=== PATIENT | female | born 1970 | race Caucasian/White ===

== ENCOUNTER → 2019-02-22 | Emergency (ER) | payer MEDICARE, MEDICAID ==
[~2019-02-22] VITALS: Ht 162.6 cm; Wt 80.9 kg
[~2019-02-22] MED LIST: ALPR-624 PO; ALPRAZolam 0.5mg tablet PO ONE; BENA10TA74 PO; CYCL-1 PO; ESTR0.6261 PO; HYDR200T84 PO; HYDROcodone/acetaminophen 10/325mg tab PO ONE; LOSA50TA3 PO; METO5TAB98 PO; NOR5T PO; OXYB5TAB80 PO; PANT-47 PO; PARO10TA76 PO; PARO40TA81 PO; TRAM50TA2 PO; [UNRECOGNIZED DRUG - OTHER] PO; ondansetron 4mg rapidly disintigrating tab PO ONE
[2019-02-22 23:35] VITALS: BP 142/92
== END | disposition home or self-care (01) ==
LOC: ER 22:26
DX: S82.831A Other fracture of upper and lower end of right fibula, initial encounter for closed fracture (principal); I10 Essential (primary) hypertension; Z88.2 Allergy status to sulfonamides; W01.0XXA Fall on same level from slipping, tripping and stumbling without subsequent striking against object, initial encounter; Y93.01 Activity, walking, marching and hiking; Y92.89 Other specified places as the place of occurrence of the external cause; Y99.8 Other external cause status
CPT/HCPCS: 29515; 73610; 99284

== ENCOUNTER 2019-11-02 10:56 | Emergency (ER) | payer MEDICARE, MEDICAID ==
[~2019-11-02] VITALS: Ht 162.6 cm; Wt 83.0 kg
[~2019-11-02 10:56] MED LIST changes: -ALPRAZolam 0.5mg tablet PO ONE; -HYDROcodone/acetaminophen 10/325mg tab PO ONE; -TRAM50TA2 PO; -ondansetron 4mg rapidly disintigrating tab PO ONE
[2019-11-02 11:30] LABS: EOSINOPHILS # (AUTO) 0.1 X10'3 (0-0.9); HEMOGLOBIN 13.2 g/dl (12.0-16.0); MEAN CORPUSCULAR VOLUME 90.9 FL (78-98); RED BLOOD COUNT 4.43 X10'6 (4.20-5.60)
[2019-11-02 11:31] LABS: BASOPHILS % (AUTO) 0.5 % (0-1); HEMATOCRIT 40.2 % (35.0-45.0); LYMPHOCYTES # (AUTO) 1.3 X10'3 (1.1-4.8); LYMPHOCYTES % (AUTO) 17.9 % (21-51); MEAN CORPUSCULAR HEMOGLOBIN 29.8 PG (27.0-31.0); MEAN CORPUSCULAR HGB CONC 32.8 g/dL (33.0-36.5); MEAN PLATELET VOLUME 10.8 FL (7.4-10.4); MONOCYTES # (AUTO) 1.1 X10'3 (0-0.9); NEUTROPHILS # (AUTO) 4.8 X10'3 (1.8-7.7); NEUTROPHILS % (AUTO) 65.6 % (42-75); PLATELET COUNT 168 X10'3 (140-440); RED CELL DISTRIBUTION WIDTH 13.9 % (11.5-14.5); WHITE BLOOD COUNT 7.3 X10'3 (4.5-11.0)
[2019-11-02 11:49] LABS: LARGE PLATELETS FEW; PLATELET ESTIMATE NORMAL
[2019-11-02 11:54] LABS: ALANINE AMINOTRANSFERASE 10 U/L (12-78); ALBUMIN 3.5 G/DL (3.4-5.0); ALKALINE PHOSPHATASE 83 IU/L (46-116); ANION GAP 12 (8-16); ASPARTATE AMINO TRANSFERASE 15 U/L (10-37); BILIRUBIN,TOTAL 0.3 MG/DL (0.1-1.0); BLOOD UREA NITROGEN 60 MG/DL (7-18); BUN/CREATININE RATIO 16.1 (6.6-38.0); CALCIUM 8.1 MG/DL (8.5-10.1); CHLORIDE 106 MMOL/L (99-107); CREATININE 3.73 MG/DL (0.40-0.90); GLUCOSE 101 MG/DL (70-104); LIPASE 265 U/L (73-393); MAGNESIUM 2.1 MG/DL (1.5-2.4); POTASSIUM 4.1 MMOL/L (3.5-5.1); SODIUM 144 MMOL/L (135-145); TOTAL PROTEIN 7.1 G/DL (6.4-8.2); eGFR 13 ML/MIN
[2019-11-02 11:58] LABS: ETHANOL < 0.010 GM/DL (0.0-0.010)
[2019-11-02 13:23] LABS: CLARITY,URINE SLIGHTLY CLOUDY (Clear); COLOR,URINE STRAW (Yellow); GLUCOSE, URINE NEGATIVE (Neg); KETONES,URINE NEGATIVE (Neg); LEUKOCYTE ESTERASE ,URINE NEGATIVE (Neg); NITRITES, URINE NEGATIVE (Neg); OCCULT BLOOD,URINE NEGATIVE (Neg); PH,URINE 5.5 (4.8-8.0); PROTEIN,URINE 100 mg/dl (Neg); UA COLLECTION TYPE CLN CATCH MIDSTREAM; UROBILINOGEN,URINE 0.2 E.U/dL (0.2-1.0)
[2019-11-02 13:27] LABS: URINE AMPHETAMINE SCREEN NEGATIVE (Neg); URINE BARBITUATE SCREEN NEGATIVE (Neg); URINE BENZODIAZEPINES SCREEN NEGATIVE (Neg); URINE CANNABINOID SCREEN POSITIVE (Neg); URINE COCAINE SCREEN NEGATIVE (Neg); URINE METHADONE SCREEN NEGATIVE (Neg); URINE OPIATE SCREEN NEGATIVE (Neg); URINE PHENCYCLIDINE SCREEN NEGATIVE (Neg)
[2019-11-02 13:33] LABS: SQUAMOUS EPITHELIAL CELL,UR MANY /LPF (FEW)
[2019-11-02 13:34] LABS: COARSE GRANULAR CAST 0-3 /LPF (NEGATIVE); HYALINE CASTS 0-3 /LPF (NEGATIVE)
[2019-11-02 13:35] LABS: AMORPHOUS URATES 1+; BACTERIA,URINE FEW /HPF (Neg); MUCUS STRANDS NONE SEEN /LPF (Neg); RBC,URINE 0-2 /HPF (0-2); WBC,URINE 0-4 /HPF (0-4)
[2019-11-02] MEDS ORDERED: normal saline 1000ML IV soln IVB ONE (13:55)
[2019-11-02] MEDS ORDERED: ONDA4TAB12 PO (14:01)
[2019-11-02 14:13] VITALS: BP 150/98
== END 2019-11-02 14:14 | disposition home or self-care (01) ==
LOC: ER 10:57
DX: E86.0 Dehydration (principal); R19.7 Diarrhea, unspecified; R11.2 Nausea with vomiting, unspecified; I12.9 Hypertensive chronic kidney disease with stage 1 through stage 4 chronic kidney disease, or unspecified chronic kidney disease; N18.9 Chronic kidney disease, unspecified; F41.9 Anxiety disorder, unspecified; F10.99 Alcohol use, unspecified with unspecified alcohol-induced disorder; Z90.49 Acquired absence of other specified parts of digestive tract; Z90.710 Acquired absence of both cervix and uterus; Z98.890 Other specified postprocedural states; Z88.2 Allergy status to sulfonamides; Z79.899 Other long term (current) drug therapy; Y90.9 Presence of alcohol in blood, level not specified
CPT/HCPCS: 36415; 74176; 80053; 80305; 80320; 81001; 83690; 83735; 85025; 99284

== ENCOUNTER 2021-05-14 08:52 | Emergency (ER) | payer MEDICARE, MEDICAID ==
[~2021-05-14] VITALS: Ht 162.6 cm; Wt 85.5 kg
[~2021-05-14 08:52] MED LIST changes: +ONDA4TAB12 PO
[2021-05-14 09:51] LABS: BASOPHILS # (AUTO) 0.2 X10'3 (0-0.2); BASOPHILS % (AUTO) 1.3 % (0-1); EOSINOPHILS # (AUTO) 0.2 X10'3 (0-0.9); EOSINOPHILS % (AUTO) 1.9 % (0-6); HEMATOCRIT 37.5 % (35.0-45.0); HEMOGLOBIN 12.1 g/dl (12.0-16.0); LYMPHOCYTES # (AUTO) 1.1 X10'3 (1.1-4.8); LYMPHOCYTES % (AUTO) 8.8 % (21-51); MEAN CORPUSCULAR HEMOGLOBIN 29.5 PG (27.0-31.0); MEAN CORPUSCULAR HGB CONC 32.4 g/dL (33.0-36.5); MEAN PLATELET VOLUME 10.4 FL (7.4-10.4); MONOCYTES # (AUTO) 0.9 X10'3 (0-0.9); MONOCYTES % (AUTO) 7.4 % (2-12); NEUTROPHILS # (AUTO) 10.1 X10'3 (1.8-7.7); NEUTROPHILS % (AUTO) 80.6 % (42-75); PLATELET COUNT 196 X10'3 (140-440); RED BLOOD COUNT 4.12 X10'6 (4.20-5.60); RED CELL DISTRIBUTION WIDTH 14.5 % (11.5-14.5); WHITE BLOOD COUNT 12.6 X10'3 (4.5-11.0)
[2021-05-14 10:07] LABS: ALANINE AMINOTRANSFERASE 58 U/L (12-78); ALBUMIN 3.2 G/DL (3.4-5.0); ALKALINE PHOSPHATASE 82 IU/L (46-116); ANION GAP 16 (8-16); ASPARTATE AMINO TRANSFERASE 40 U/L (10-37); BILIRUBIN,TOTAL 0.3 MG/DL (0.1-1.0); BLOOD UREA NITROGEN 77 MG/DL (7-18); BUN/CREATININE RATIO 14.6 (6.6-38.0); CALCIUM 6.8 MG/DL (8.5-10.1); CHLORIDE 109 MMOL/L (99-107); CREATININE 5.29 MG/DL (0.40-0.90); GLUCOSE 123 MG/DL (70-104); POTASSIUM 4.6 MMOL/L (3.5-5.1); SODIUM 141 MMOL/L (135-145); TOTAL CARBON DIOXIDE 16.2 MMOL/L (24-32); TOTAL PROTEIN 6.5 G/DL (6.4-8.2); eGFR 9 ML/MIN
[2021-05-14 10:13] VITALS: BP 162/90
--- NOTE | 2021-05-14 13:08 | NUR ---
Patient refusing third COVID RO[employer] MAKER swab. SIVAKUMAR Garcia made aware.
[2021-05-14] MEDS ORDERED: FURO40TA4 PO (13:52)
== END 2021-05-14 14:23 | disposition home or self-care (01) ==
LOC: ER 08:53
DX: R91.8 Other nonspecific abnormal finding of lung field (principal); Z20.828 Contact with and (suspected) exposure to other viral communicable diseases; N17.9 Acute kidney failure, unspecified; N18.9 Chronic kidney disease, unspecified; I12.9 Hypertensive chronic kidney disease with stage 1 through stage 4 chronic kidney disease, or unspecified chronic kidney disease; Z88.2 Allergy status to sulfonamides; Z79.899 Other long term (current) drug therapy; Z72.89 Other problems related to lifestyle; Z90.49 Acquired absence of other specified parts of digestive tract; Z98.890 Other specified postprocedural states; Z90.710 Acquired absence of both cervix and uterus
CPT/HCPCS: 36415; 71045; 80053; 83880; 84484; 85025; 87635; 99285; C9803

== ENCOUNTER 2021-06-20 07:08 | Day surgery (SDC) | payer MEDICARE, MEDICAID ==
[2021-06-20] VITALS (8 sets, daily range): BP systolic 141–160; BP diastolic 58–101
[~2021-06-20] VITALS: Ht 162.6 cm; Wt 86.9 kg
[~2021-06-20 07:08] MED LIST changes: +FURO40TA4 PO
[2021-06-20] MEDS ORDERED: CYCL-1 PO (07:57)
[2021-06-20] MEDS ORDERED: ERGO500054 PO (07:59)
[2021-06-20] MEDS ORDERED: FURO-149 PO (07:59)
[2021-06-20] MEDS ORDERED: ONDA4TAB6 PO (07:59)
[2021-06-20] MEDS ORDERED: SIME125T62 PO (08:02)
[2021-06-20] MEDS ORDERED: BUPR-74 PO (08:02)
[2021-06-20] MEDS ORDERED: CEVI30CA7 PO (08:02)
[2021-06-20] MEDS ORDERED: AMLO10TA13 PO (08:02)
[2021-06-20] MEDS ORDERED: METO50TA16 PO (08:02)
[2021-06-20 08:19] LABS: BASOPHILS # (AUTO) 0.1 X10'3 (0-0.2); BASOPHILS % (AUTO) 1.3 % (0-1); EOSINOPHILS # (AUTO) 0.3 X10'3 (0-0.9); EOSINOPHILS % (AUTO) 3.2 % (0-6); HEMATOCRIT 37.2 % (35.0-45.0); LYMPHOCYTES # (AUTO) 1.2 X10'3 (1.1-4.8); MEAN CORPUSCULAR HEMOGLOBIN 29.6 PG (27.0-31.0); MEAN CORPUSCULAR HGB CONC 32.4 g/dL (33.0-36.5); MEAN CORPUSCULAR VOLUME 91.5 FL (78-98); MEAN PLATELET VOLUME 11.3 FL (7.4-10.4); MONOCYTES # (AUTO) 0.9 X10'3 (0-0.9); NEUTROPHILS # (AUTO) 7.2 X10'3 (1.8-7.7); NEUTROPHILS % (AUTO) 74.5 % (42-75); PLATELET COUNT 180 X10'3 (140-440); RED BLOOD COUNT 4.06 X10'6 (4.20-5.60); RED CELL DISTRIBUTION WIDTH 14.5 % (11.5-14.5); WHITE BLOOD COUNT 9.7 X10'3 (4.5-11.0)
[2021-06-20] MEDS ORDERED: LIDOcaine 1%/PF 5ML 10 MG/ML VIAL ONE (08:33)
[2021-06-20] MEDS ORDERED: midazolam 1 mg/ML 2ml injection ONE ×3 (08:33→08:53)
[2021-06-20] MEDS ORDERED: fentaNYL/PF 50MCG/1 ML 2ML syringe ONE ×3 (08:34→08:53)
[2021-06-20] MEDS ORDERED: pneumococcal 23-VAL P-sac vacc 25 mcg/0.5ml vial IMVAC ONE (08:35)
[2021-06-20] MEDS ORDERED: ondansetron/PF 4mg/2ml inj ONE ×2 (08:36→09:37)
[2021-06-20] MEDS ORDERED: heparin 1,000unit/ml 10ml vial 10 ML ONE (08:46)
[2021-06-20 09:18] LABS: LARGE PLATELETS FEW; PLATELET ESTIMATE NORMAL
== END 2021-06-20 12:25 | disposition home or self-care (01) ==
LOC: SSTAY O 07:08
PROVIDERS: ATTEND Radiology Diagnostic Radiology
DX: I12.0 Hypertensive chronic kidney disease with stage 5 chronic kidney disease or end stage renal disease (principal); N18.6 End stage renal disease; M32.14 Glomerular disease in systemic lupus erythematosus; N17.9 Acute kidney failure, unspecified; K21.9 Gastro-esophageal reflux disease without esophagitis; F41.9 Anxiety disorder, unspecified; Z90.710 Acquired absence of both cervix and uterus; Z98.890 Other specified postprocedural states; F17.210 Nicotine dependence, cigarettes, uncomplicated; Z88.2 Allergy status to sulfonamides; Z79.899 Other long term (current) drug therapy
CPT/HCPCS: 36415; 36558; 76937; 77001; 85025; 99152; 99153; C1750; C1769; C1894; J1644; J2250; J2405; J3010; 85008; A9270

== ENCOUNTER 2022-03-01 17:47 | Emergency (ER) | payer MEDICARE, MEDICAID ==
[~2022-03-01] VITALS: Ht 162.6 cm; Wt 81.8 kg
[~2022-03-01 17:47] MED LIST changes: +AMLO10TA13 PO; +BUPR-74 PO; +CEVI30CA7 PO; +ERGO500054 PO; -ESTR0.6261 PO; +FURO-149 PO; -FURO40TA4 PO; +METO50TA16 PO; -NOR5T PO; -ONDA4TAB12 PO; +ONDA4TAB6 PO; -OXYB5TAB80 PO; -PARO10TA76 PO; +SIME125T62 PO; -[UNRECOGNIZED DRUG - OTHER] PO
[2022-03-01 18:00] VITALS: BP 131/73
[2022-03-01] MEDS ORDERED: HYDROcodone/acetaminophen 10/325mg tab PO STA (18:02)
== END 2022-03-01 19:03 | disposition home or self-care (01) ==
LOC: ER 17:48
DX: S93.402A Sprain of unspecified ligament of left ankle, initial encounter (principal); M25.572 Pain in left ankle and joints of left foot; F41.9 Anxiety disorder, unspecified; I12.9 Hypertensive chronic kidney disease with stage 1 through stage 4 chronic kidney disease, or unspecified chronic kidney disease; N18.9 Chronic kidney disease, unspecified; Z87.01 Personal history of pneumonia (recurrent); Z90.49 Acquired absence of other specified parts of digestive tract; Z90.710 Acquired absence of both cervix and uterus; Z72.89 Other problems related to lifestyle; Z88.2 Allergy status to sulfonamides; Z79.899 Other long term (current) drug therapy; W19.XXXA Unspecified fall, initial encounter; Y93.89 Activity, other specified; Y92.89 Other specified places as the place of occurrence of the external cause; Y99.8 Other external cause status
CPT/HCPCS: 73610; 99283

== ENCOUNTER 2024-06-03 10:20 | Outpatient (CLI) | payer MEDICARE, MEDICAID ==
[~2024-06-03] VITALS: Ht 162.6 cm; Wt 61.7 kg
[~2024-06-03 10:20] MED LIST changes: -ALPR-624 PO; +AMIT50TA15 PO; +AMLO-888 PO; -AMLO10TA13 PO; -BENA10TA74 PO; -BUPR-74 PO; +CALC668T PO; +CEVI30CA12 PO; -CEVI30CA7 PO; -CYCL-1 PO; +DICL100G59 TOP; -ERGO500054 PO; +FAMO20TA8 PO; +FOLI0.8C PO; -FURO-149 PO; +FURO80TA87 PO; +HYDR200T73 PO; -HYDR200T84 PO; +LOSA-418 PO; -LOSA50TA3 PO; -METO50TA16 PO; +METO50TA17 PO; +NYST1000 PO; -ONDA4TAB6 PO; -PANT-47 PO; +PARO-141 PO; -PARO40TA81 PO; +PHO667C; -SIME125T62 PO; +VITA-268 PO
[2024-06-03 10:50] VITALS: PULSE 88; RESP 14; O2SAT 99
[2024-06-03] MEDS: albuterol 2.5 MG/3 ML nebule NEB ONE (11:01)
[2024-06-03 11:12] VITALS: PULSE 87; RESP 16
== END 2024-06-03 23:59 | disposition home or self-care (01) ==
LOC: RT 10:20
PROVIDERS: ATTEND Student in an Organized Health Care Education/Training Program
DX: R06.02 Shortness of breath (principal)
CPT/HCPCS: 94060; 94760; Z7610